=== PATIENT | female | born 1975 | race Caucasian/White ===

== ENCOUNTER 2021-09-20 16:52 | Emergency (ER) | payer MEDICAID, SELFPAY ==
--- NOTE | 2021-09-20 16:56 | XRR_ITS ---
PROCEDURE INFORMATION: Exam: XR Right Foot Exam date and time: 09/20/2021 6:17 PM Age: 46 years old Clinical indication: Foot; Right; Patient HX: Pain x 3 days, no trauma TECHNIQUE: Imaging protocol: XR Right foot. Views: 3 or more views. COMPARISON: No relevant prior studies available. FINDINGS: Bones/joints: Normal. Soft tissues: Normal. XR/XR foot RT min 3V* [id number] IMPRESSION: No acute findings.
[2021-09-20 17:24] VITALS: BP 155/99; PULSE 67; RESP 16; TEMP 36.6; O2SAT 100; BMI 35.6
[2021-09-20 17:28] VITALS: BP 161/88; PULSE 83; RESP 20; O2SAT 94
[2021-09-20 18:11] VITALS: BP 152/93; PULSE 72; RESP 18; TEMP 36.8; O2SAT 100
[2021-09-20 18:28] VITALS: BP 112/82; PULSE 65; RESP 18; TEMP 36.5; O2SAT 97
--- NOTE | 2021-09-20 18:52 | W.ED.EXTPRO ---
HPI - Extremity Problem General: Chief complaint: Back Pain/Injury Stated complaint: Right foot pain, hard time walking on it Time Seen by Provider: 09/20/21 17:54 History of Present Illness: Patient is a 46-year-old female comes to the ED with right foot pain. Symptoms started approximately 3 days ago. She denies any known injury or trauma to cause pain. She woke up 1 morning and was walking around and noticed some pain around midfoot. She has not taken anything for pain since onset of symptoms. Any weightbearing or range of motion in ankle causes some pain. She describes her pain as mild. Associated symptoms: Deny chest pain, fever(s) or rash Review of Systems Const: Denies: fever(s), chills or fatigue Eyes: Denies: change in vision or eye discomfort ENMT: Denies: throat pain, odynophagia, nasal discharge or nasal congestion Card: Denies: chest pain, palpitations, edema, swelling of feet/ankles, dyspnea on exertion or orthopnea Resp: Denies: dyspnea, productive cough or non-productive cough GI: Denies: abdominal pain, nausea, vomiting, diarrhea, constipation or hematochezia : Denies: flank pain, dysuria or hematuria Musc: Reports: extremity pain (Right foot); Denies: neck pain, back pain or extremity swelling Skin/Breast: Denies: rash or new lesions Neuro: Denies: headache(s), numbness in extremities or weakness in extremities [facility] ED PFSH: Medical History No pertinent family history Surgical History No pertinent past surgical history Physical Exam Const: COMMON NORMALS: no acute distress, patient oriented x3 and alert GENERAL APPEARANCE: cooperative and comfortable HENMT: COMMON NORMALS: normocephalic HEAD & SCALP: normocephalic MOUTH: Normal oral and palatal mucosa present THROAT: posterior oropharynx normal and uvula midline Neck/C-Spine: COMMON NORMALS: supple GENERAL: Yes normal visual inspection Resp: COMMON NORMALS: normal respiratory effort, No retractions, No use of accessory muscles and clear to auscultation bilaterally AUSCULTATION: clear to auscultation bilaterally Cardio: COMMON NORMALS: regular rate, regular rhythm, S1 normal heart sound present, S2 normal heart sound present, No gallops present (Cardio), No clicks present (Cardio), No murmurs present (Cardio) and Peripheral pulses 2+ throughout RATE: regular rate RHYTHM: regular rhythm HEART SOUNDS: S1 normal heart sound present and S2 normal heart sound present PERIPHERAL PULSES: Peripheral pulses 2+ throughout GI: COMMON NORMALS: Normal to inspection, nondistended, normoactive bowel sounds present, Soft to palpation, non-tender and no masses PALPATION: Yes Soft to palpation : COMMON NORMALS: Yes no CVA tenderness BLADDER/KIDNEY EXAM: Yes no CVA tenderness Back/Pelvis: COMMON NORMALS: no CVA tenderness Extremity: COMMON NORMALS: normal to inspection, full ROM and no pedal edema NARRATIVE EXTREMITY EXAM: Patient is able to ambulate on right foot with no limping and says pain is mild. No erythema, warmth or swelling noted in right foot. Neuro: COMMON NORMALS: patient oriented x3 and moves all extremities SENSORIUM/ORIENTATION: Yes alert Skin: GENERAL SKIN EXAM: dry skin Course Vital Signs: Vital signs: Vital Signs Temperature 97.7 F 09/20/21 18:28 Pulse Rate 70 09/20/21 19:55 Respiratory Rate 20 H 09/20/21 19:55 Blood Pressure 127/87 09/20/21 19:55 Pulse Oximetry 100 09/20/21 19:55 MDM - Extremity (Nontraumatic) Medical Decision Making Patient is a 46-year-old female comes to the ED with right foot pain. Denies any injury or trauma to her right foot to cause symptoms. Pain is located midfoot she states she just woke up with it a couple days ago. Vitals are stable. Exam is benign and patient is able ambulate on right foot without any limping. There is no erythema, warmth or tenderness. X-ray of right foot showed no acute fractures or findings. Patient was diagnosed with right foot pain and was discharged home. She was told to rest ice and elevate right foot and to take [id number] ibuprofen per bottle instruction up with pain. Return ED precautions given. Follow-up with PCP in the next week for reevaluation. Patient understood and agreed with plan. Lab Data Radiology Impressions Foot X-Ray 09/20/21 16:56 IMPRESSION: No acute findings. Discharge Plan Discharge Patient Disposition: Home Clinical Impression: Foot pain, right Condition: Stable Prescriptions: No Action No Known Home Medications 0RF Discharge Orders: Discharge ED (Routine); Ordered 09/20/21 Ordered By: Nima Berry Referrals: Marion Parr FNP [Referring] - Discharge Diet: Regular Discharge Activity: Increase activity as tolerated Activity Restrictions/Additional Instructions: Follow-up with medical provider as directed in the next 7 to 10 days for reevaluation. Rest, ice and elevate right foot. Take [id number] ibuprofen per bottle instructions for pain. You can take 600 mg up to 800 mg dose of ibuprofen every 8 hours as needed for pain. Return to the ER or your medical provider if condition worsens. Please read and understand discharge instructions. Thank you for choosing [facility] for your healthcare needs today. Please realize this is an emergency room and that we are providing you with a medical screening exam and this may not be complete and all inclusive of all the testing and or work up that you may need to determine your ailment or severity of your illness. It is very important that you follow up as instructed or that you return to the Emergency Department should you have concerns or if your condition changes or worsens in any way. Coding Level of Care Code ED Photographic Processor for Alonzo Fwd Exam Comprehensive
--- NOTE | 2021-09-20 19:05 | PC.NURSE ---
1899 Assumed pt care from Sherri JONES
[2021-09-20 19:55] VITALS: BP 127/87; PULSE 70; RESP 20; O2SAT 100
== END 2021-09-20 19:57 | disposition home or self-care (01) ==
PROVIDERS: Emergency Provider Physician Assistant
DX: M79.671 Pain in right foot (principal)
CPT/HCPCS: 73630; 99283

== ENCOUNTER 2022-01-06 09:04 | Emergency (ER) | payer MEDICARE, MEDICAID, SELFPAY ==
[2022-01-06 09:14] VITALS: BP 127/88; PULSE 89; RESP 14; TEMP 36.6; O2SAT 96; BMI 34.7
--- NOTE | 2022-01-06 09:30 | XR_ITS ---
WS: [id number] Exam: XR knee RT 3V* [id number] Date/Time of Exam: 01/06/2022 9:35 AM Reason For Exam: pain No acute fracture or dislocation. Joint compartments are well-maintained. No joint effusion. XR/XR knee RT 3V* [id number] IMPRESSION: 1. Negative right knee.
--- NOTE | 2022-01-06 09:30 | W.ED.EXTPRO ---
HPI - Extremity Problem General: Chief complaint: Extremity Problem,Nontraumatic Stated complaint: Right knee pain Time Seen by Provider: 01/06/22 09:08 Source: patient Mode of arrival: ambulatory Limitations: no limitations History of Present Illness: Patient is a 46-year-old female who presents to ED today with a complaint of right knee pain over the past 2 to 3 days. She has not had any known injury or trauma to the knee. She has not noticed any redness or swelling to the joint. She does not have any symptoms or pain proximally or distally. Pain seems to be worse with weight bearing. She denies any previous injury or trauma to the joint. MD Complaint: joint pain Onset (ago): day(s) Pain Consistency: constant Location: right and lower extremity (knee) Radiation: none Relieving factors: nothing Exacerbating factors: weight bearing Associated symptoms: Reports no associated symptoms; Deny chest pain or fever(s) Review of Systems Const: Denies: fever(s), chills, body aches, fatigue or malaise Card: Denies: chest pain Resp: Denies: dyspnea Musc: Reports: joint pain (R knee); Denies: neck pain, back pain, extremity pain, extremity swelling, joint swelling, joint redness, joint warmth, joint stiffness, limited range of motion, muscle cramps, muscle weakness or decrease in muscle mass Neuro: Denies: numbness in extremities or sensory changes [facility] ED PFSH: Medical History No pertinent family history Surgical History No pertinent past surgical history Physical Exam Const: COMMON NORMALS: no acute distress, patient oriented x3, no limitations and alert GENERAL APPEARANCE: cooperative NUTRITIONAL APPEARANCE: overweight ORIENTATION/CONSCIOUSNESS: Yes awake, Yes oriented to person, Yes oriented to place and Yes oriented to time Extremity: COMMON NORMALS: full ROM, capillary refill normal, no joint enlargement, no clubbing, cyanosis or edema, no calf tenderness and no pedal edema GENERAL: Yes normal exam except as noted RIGHT LOWER EXTREMITY: Yes knee joint (bony arthritis and minor crepitus noted; no effusion; no Ramírez's) Right knee: Yes palpation (no obvious joint laxity), Yes ROM (normal) and Yes neurovascular exam (normal) OTHER: pt has no redness/swelling to knee or lower leg Neuro: COMMON NORMALS: patient oriented x3, moves all extremities, no focal motor deficits, no sensory deficits noted and gait normal SENSORIUM/ORIENTATION: Yes alert, Yes oriented to person, Yes oriented to place and Yes oriented to time Skin: COMMON NORMALS: no rashes or lesions noted GENERAL SKIN EXAM: no rashes or lesions noted TRAUMA: no lacerations or abrasions Course Vital Signs: Vital signs: Vital Signs Temperature 97.9 F 01/06/22 09:14 Pulse Rate 89 01/06/22 09:14 Respiratory Rate 14 01/06/22 09:14 Blood Pressure 127/88 01/06/22 09:14 Pulse Oximetry 96 01/06/22 09:14 Oxygen Delivery Me thod 01/06/22 09:14 MDM - Extremity (Nontraumatic) Medical Decision Making XR negative. Recommend knee brace/sleeve, NSAIDS/Tylenol prn, topical therapies such as Voltaren gel/ Biofreeze/Aspercreme/etc, ice and elevation. Follow up with PCP in 2 weeks if pain persists. Lab Data Radiology Impressions Knee X-Ray 01/06/22 09:30 IMPRESSION: 1. Negative right knee. Discharge Plan Discharge Patient Disposition: Home Clinical Impression: Right knee pain Qualifiers: Chronicity: acute Qualified Code(s): M25.561 - Pain in right knee Condition: Stable Prescriptions: No Action No Known Home Medications Discharge Orders: Discharge ED (Routine); Ordered 01/06/22 Ordered By: Letitia Gardner Referrals: Marion Parr FNP [Primary Care Provider] - Coding Level of Care Code ED Show Host for Chg Fwd Exam Expanded Problem Focused
== END 2022-01-06 10:10 | disposition home or self-care (01) ==
PROVIDERS: Emergency Provider Physician Assistant; PCP Nurse Practitioner
DX: M25.561 Pain in right knee (principal)
CPT/HCPCS: 73562; 99283

== ENCOUNTER 2023-08-21 11:04 | Emergency (ER) | payer MEDICARE, MEDICAID, SELFPAY ==
[2023-08-21 11:12] VITALS: BP 132/85; PULSE 69; RESP 17; TEMP 37.1; O2SAT 97; BMI 34.7
--- NOTE | 2023-08-21 12:14 | W.ED.WOUNDLC ---
Documented by User: Radha Dean MD 08/21/23 13:53 HPI - Wound/Laceration General: Chief Complaint: Wound/Laceration Stated Complaint: left arm lac Time Seen by Provider: 08/21/23 12:05 History of Present Illness: 48-year-old female who presents emergency room with a left wrist laceration. She says she was putting together some furniture and fell over and hit her wrist on a plastic container and cut her wrist. She does not know when her last tetanus was. Bleeding is controlled. No other injury. Review of Systems Narrative: Constitutional symptoms: Negative except as documented in HPI. Skin symptoms: Negative except as documented in HPI. Eye symptoms: Negative except as documented in HPI. ENMT symptoms: Negative except as documented in HPI. Respiratory symptoms: Negative except as documented in HPI. Cardiovascular symptoms: Negative except as documented in HPI. Gastrointestinal symptoms: Negative except as documented in HPI. Genitourinary symptoms: Negative except as documented in HPI. Musculoskeletal symptoms: Negative except as documented in HPI. Neurologic symptoms: Negative except as documented in HPI. Psychiatric symptoms: Negative except as documented in HPI. Endocrine symptoms: Negative except as documented in HPI. [facility] ED PFSH: Medical History No pertinent family history Surgical History No pertinent past surgical history Social History Smoking and tobacco/nicotine status: current every day tobacco/nicotine user Physical Exam Narrative: EXAM NARRATIVE: General: Alert, no acute distress. Skin: warm and dry, 4 cm laceration to the left wrist dorsally and horizontally Head: Normocephalic Neck: Trachea midline Eye: Extraocular movements are intact. Ears, nose, mouth and throat: Oral mucosa moist Respiratory: Respirations are non-labored Musculoskeletal: Normal ROM Neurological: Alert and oriented to person, place, time, and situation, No focal neurological deficit observed. Psychiatric: Cooperative, appropriate mood & affect. Course Vital Signs: Vital signs: Vital Signs Temperature 98.8 F 08/21/23 11:12 Pulse Rate 69 08/21/23 11:12 Respiratory Rate 17 08/21/23 11:12 Blood Pressure 132/85 08/21/23 11:12 Pulse Oximetry 97 04/14/24 11:12 Oxygen Delivery Me thod Room Air 08/21/23 11:12 MDM - Wound/Laceration Medical Decision Making Patient requires update of her tetanus which was done. See SSAS DEVELOPER note for laceration repair procedure. Other Data Assessment and plan: -Life-saving tetanus was administered -Wound was closed. - Discharged home - Discussed plan with patient. Answered any questions. - Evaluation and treatment of this problem were appropriate in the emergency setting. Discharge Plan Discharge Patient Disposition: Home Clinical Impression: Laceration Condition: Stable Prescriptions: No Action No Known Home Medications Discharge Orders: Discharge ED (Routine); Ordered 08/21/23 Ordered By: Radha Dean Referrals: William Connolly MD [Primary Care Provider] - (You have been screened and evaluated and felt safe for discharge. Health conditions do change or evolve sometimes and as such it is important that you follow up with your Primary Doctor to be re checked, 3-5 days is a general good time frame for follow up. You are always welcome to return to the ED for re assessment if your symptoms are worsening or you have new concerns) Discharge Diet: Usual diet Discharge Activity: Increase activity as tolerated Patient Instructions: Laceration (ED) Activity Restrictions/Additional Instructions: Return to your primary care or to the emergency room for suture removal in 7 days. On 08/28/2023. Keep wound dry other than to wash with soap and water once to twice daily. Do not submerge. Coding Level of Care Code ED Systems Test Engineer for Chg Fwd Documented by User: TRACY Dye 08/21/23 13:48 HPI - Wound/Laceration General: Chief Complaint: Wound/Laceration Stated Complaint: left arm lac Time Seen by Provider: 08/21/23 12:05 [facility] ED PFSH: Medical History No pertinent family history Surgical History No pertinent past surgical history Social History Smoking and tobacco/nicotine status: current every day tobacco/nicotine user Procedures Laceration Laceration 1: Site: upper extremity Side (If applicable): left Size (cm): 2.5 Description: linear Depth: simple, single layer Local Anesthetic: lidocaine 1% Amount of anesthesia used (mL): 2 Pre-repair: wound explored and irrigated extensively Skin layer closed with: nylon Size (cm): 4-0 Number of sutures: 5 Course ED course: 1347, suture repaired by JEFF Pena. Patient tolerated well, no complication. wjw Vital Signs: Vital signs: Vital Signs Temperature 98.8 F 08/21/23 11:12 Pulse Rate 69 08/21/23 11:12 Respiratory Rate 17 08/21/23 11:12 Blood Pressure 132/85 08/21/23 11:12 Pulse Oximetry 97 08/21/23 11:12 Oxygen Delivery Me thod Room Air 08/21/23 11:12 MDM - Wound/Laceration XR interpretation done by ED provider, pending radiology final review Discharge Plan Discharge Patient Disposition: Home Clinical Impression: Laceration Condition: Stable Prescriptions: No Action No Known Home Medications Discharge Orders: Discharge ED (Routine); Ordered 08/21/23 Ordered By: Radha Dean Referrals: William Connolly MD [Primary Care Provider] - (You have been screened and evaluated and felt safe for discharge. Health conditions do change or evolve sometimes and as such it is important that you follow up with your Primary Doctor to be re checked, 3-5 days is a general good time frame for follow up. You are always welcome to return to the ED for re assessment if your symptoms are worsening or you have new concerns) Discharge Diet: Usual diet Discharge Activity: Increase activity as tolerated Patient Instructions: Laceration (ED) Activity Restrictions/Additional Instructions: Return to your primary care or to the emergency room for suture removal in 7 days. On 08/28/2023. Keep wound dry other than to wash with soap and water once to twice daily. Do not submerge. Coding Level of Care Code ED Systems Test Engineer for Alonzo Duran
[2023-08-21] MEDS: tetanus-dipt-pertussis 0.5 mL SDV IM (13:19)
[2023-08-21 14:06] VITALS: BP 141/93; PULSE 70; RESP 16; O2SAT 99
== END 2023-08-21 14:04 | disposition home or self-care (01) ==
PROVIDERS: Emergency Provider Emergency Medicine; PCP Family Medicine
DX: S61.512A Laceration without foreign body of left wrist, initial encounter (principal); Z72.0 Tobacco use; W19.XXXA Unspecified fall, initial encounter; Z23 Encounter for immunization
CPT/HCPCS: 12001; 90471; 90715; 99283; A6446